=== PATIENT | male | born 1965 | race Caucasian/White ===

== ENCOUNTER 2022-01-11 15:50 | Inpatient (IN) | payer OTHER ==
[~2022-01-11] VITALS: Ht 185.4 cm; Wt 70.8 kg
[2022-01-11 17:22] LABS: BASOPHILS ABSOLUTE AUTO 0.02 K/mm3 (0.00-0.23); BASOPHILS PERCENT AUTO 0 % (0-2); EOSINOPHILS ABSOLUTE AUTO 0.01 K/mm3 (0.00-0.68); EOSINOPHILS PERCENT AUTO 0 % (0-6); Hematocrit 31.6 % (37.0-53.0); Hemoglobin 11.1 g/dL (13.5-17.5); IMMATURE GRAN ABSOLUTE AUTO 0.08 K/mm3 (0.00-0.10); IMMATURE GRAN PERCENT AUTO 1 % (0-1); LYMPHOCYTES ABSOLUTE AUTO 0.81 K/mm3 (0.84-5.20); LYMPHOCYTES PERCENT AUTO 7 % (21-46); MONOCYTES ABSOLUTE AUTO 0.31 K/mm3 (0.16-1.47); MONOCYTES PERCENT AUTO 3 % (4-13); Mean Corpuscular HGB 35.6 pg (26.0-34.0); Mean Corpuscular HGB Conc 35.1 g/dL (31.5-36.5); Mean Corpuscular Volume 101 fL (80-100); Mean Platelet Volume 13.2 fL (9.1-12.4); NEUTROPHILS ABSOLUTE AUTO 11.01 K/mm3 (1.96-9.15); NEUTROPHILS PERCENT AUTO 90 % (41-73); NRBC ABSOLUTE 0.03 K/mm3 (0.00-0.02); NRBC Auto 0.2 /100 WBC (0.0-0.2); Platelet Count 101 K/mm3 (150-400); RDW Standard Deviation 43.3 fL (35.1-46.3); Red Blood Cell Count 3.12 M/mm3 (4.30-5.90); White Blood Cell Count 12.24 K/mm3 (4.00-11.30)
[2022-01-11 17:23] LABS: Alanine Aminotransfer (ALT/SGP 39 U/L (12-78); Albumin, Blood 2.2 g/dL (3.4-5.0); Albumin/Globulin Ratio 0.5 (0.8-1.8); Alk Phos 76 U/L (50-136); Anion Gap 7 mmol/L (6-16); Aspartate Aminotrans (AST/SGOT 61 U/L (12-37); Bilirubin, Total 0.7 mg/dL (0.1-1.0); Blood Urea Nitrogen 14 mg/dL (8-24); Bun/Creatinine Ratio 26.2 (12.0-20.0); CO2, Blood 28 mmol/L (21-32); Calcium, Blood 8.9 mg/dL (8.5-10.1); Chloride, Blood 96 mmol/L (98-108); Creatinine, Blood 0.53 mg/dL (0.60-1.20); Globulin, Blood 4.1 g/dL (2.2-4.0); Glomerular Filtration Rate >60 (60-); Glucose, Blood 108 mg/dL (70-99); Potassium, Blood 3.6 mmol/L (3.5-5.5); Sodium, Blood 131 mmol/L (136-145); Total Protein, Blood 6.3 g/dL (6.4-8.2)
[2022-01-11 18:22] LABS: Ethanol (Alcohol), Blood, Med <3 mg/dL; Magnesium, Blood 1.9 mg/dL (1.6-2.4)
--- NOTE | 2022-01-11 23:39 | NUR ---
PATIENT IS A NEW ADMIT FROM THE ED. THREE PERSON TRANSFER FROM [facility] TO BED. ALERT TO SELF AND KNOWS HE IS IN A MEDICAL FACILITY BUT NOT THE NAME. NO MONTH, DATE, OR YEAR. HALLUCINATING REPORTS SEEING CABLE GOING ACROSS BED. BEDREST, REPORTS TOO WEAK TO STAND SAFELY. ON ROOM AIR. DENIES CHEST PAIN, SOB, AND N/V. REPORTS LOST 80-90 LBS LAST TWO YEARS NOT EATING MUCH. BRUISING TO LEFT HIP AND TOES. TELEMETRY PLACE AND TECH REPORTS NSR 60. BANANA BAG INFUSING AT 200 mL/HR X ONE ROM THE ED. CIWA SCORE:9. ORIENTED TO ROOM AND CALL LIGHT SYSTEM. WCTM.
--- NOTE | 2022-01-12 04:25 | NUR ---
SHIFT SUMMARY PATIENT ALERT TO SELF AND BEDREST. CIWA SCORE 9. VISUAL HALLUCINATIONS SEEING CABLE GOING ACROSS BED AND ASKED IF WE CAN SEE IT. IV ATIVAN 2 MG GIVEN PER EMAR. ABLE TO SLEEP MOST OF THE SHIFT. DENIES CHEST PAIN, SOB, AND N/V. ON ROOM AIR. PIV REMAINS INTACT. DIRECTOR QUALITY ASSURANCE REPORTS NSR @ 60. VSS/AFEBRILE. LIVES IN TRAILER BY HIMSELF. CALL LIGHT IN REACH. BED IN LOWEST POSITION. WILL CONTINUE TO MONITOR UNTIL DAY SHIFT NURSE ASSUMES CARE.
[2022-01-12 04:52] LABS: Hematocrit 31.9 % (37.0-53.0); Hemoglobin 10.9 g/dL (13.5-17.5); Mean Corpuscular HGB 35.2 pg (26.0-34.0); Mean Corpuscular HGB Conc 34.2 g/dL (31.5-36.5); Mean Corpuscular Volume 103 fL (80-100); Platelet Count 96 K/mm3 (150-400); RDW Standard Deviation 44.8 fL (35.1-46.3); White Blood Cell Count 9.23 K/mm3 (4.00-11.30)
[2022-01-12 05:51] LABS: Mean Platelet Volume 13.5 fL (9.1-12.4)
[2022-01-12 06:39] LABS: BAND PERCENT MAN 8 % (0-8); BASOPHILS PERCENT MAN 0 % (0-2); EOSINOPHILS PERCENT MAN 0 % (0-6); LYMPHOCYTES ABSOLUTE MAN 1.47 K/mm3 (0.84-5.20); LYMPHOCYTES PERCENT MAN 16 % (21-46); MONOCYTES ABSOLUTE MAN 0.09 K/mm3 (0.16-1.47); MONOCYTES PERCENT MAN 1 % (4-13); NEUTROPHILS ABSOLUTE MAN 7.66 K/mm3 (1.96-9.15); SEG NEUTROPHILS PERCENT MAN 75 % (41-73); TOTAL CELLS COUNTED 100
[2022-01-12 07:23] LABS: Alanine Aminotransfer (ALT/SGP 36 U/L (12-78); Albumin, Blood 2.1 g/dL (3.4-5.0); Albumin/Globulin Ratio 0.5 (0.8-1.8); Alk Phos 75 U/L (50-136); Anion Gap 4 mmol/L (6-16); Aspartate Aminotrans (AST/SGOT 62 U/L (12-37); Bilirubin, Total 0.6 mg/dL (0.1-1.0); Blood Urea Nitrogen 11 mg/dL (8-24); CO2, Blood 32 mmol/L (21-32); Calcium, Blood 8.8 mg/dL (8.5-10.1); Chloride, Blood 96 mmol/L (98-108); Creatinine, Blood 0.55 mg/dL (0.60-1.20); Glomerular Filtration Rate >60 (60-); Glucose, Blood 111 mg/dL (70-99); Potassium, Blood 3.3 mmol/L (3.5-5.5); Sodium, Blood 132 mmol/L (136-145); Total Protein, Blood 6.1 g/dL (6.4-8.2)
[2022-01-12 11:55] LABS: Percent Saturation 35.7 % (20.0-50.0)
--- NOTE | 2022-01-12 16:30 | NUR ---
SHIFT SUMMARY PATIENT IS ALERT AND ORIENTED TO SELF AND PLACE ONLY. PATIENT IS HAVING Q2 CIWAS AND LATEST CIWA IS 8. LIBRIUM MEDICATED PER EMAR FOR CIWAS TWICE THIS SHIFT. PATIENT HAD A XRAY DONE ON FOOT DUE TO PAIN ON LEFT LEG, SHOWING FRACTURE OF LEFT FOOT/TOES. PATIENT HAS HAD NO ACUTE EVENTS THIS SHIFT. WITHDRAWAL SYMPTOMS HAVE BEEN UNDER 10 ALL SHIFT. VITAL SIGNS REVIEWED. PATIENT RECEIVED A BED BATH THIS SHIFT. BED IN LOCKED AND LOWEST POSITION. CALL LIGHT IN PLACE. WILL MONITOR UNTIL SHIFT CHANGE.
--- NOTE | 2022-01-13 04:56 | NUR ---
SUMMARY PT CIWAS TX PER EMAR. PT HAS BEEN RESTING WELL T/OUT SHIFT. PT HAS NOT BEEN DRINKING PO FLUIDS WELL AND SBP IN 90'S. DR CHAU CALLED AND NS FLUID WAS ORDERED. PT SISTER MAGNUS WOULD LIKE UPDATES WHEN AVAILABLE. PT CURRENTLY SLEEPING IN NO DISTRESS. CALL LIGHT IN REACH AND BED ALARM ON.
[2022-01-13 04:57] LABS: Anion Gap 8 mmol/L (6-16); Blood Urea Nitrogen 11 mg/dL (8-24); Bun/Creatinine Ratio 18.7 (12.0-20.0); CO2, Blood 28 mmol/L (21-32); Calcium, Blood 8.5 mg/dL (8.5-10.1); Chloride, Blood 99 mmol/L (98-108); Creatinine, Blood 0.59 mg/dL (0.60-1.20); Glomerular Filtration Rate >60 (60-); Glucose, Blood 96 mg/dL (70-99); Magnesium, Blood 2.4 mg/dL (1.6-2.4); Sodium, Blood 135 mmol/L (136-145)
--- NOTE | 2022-01-13 18:19 | NUR ---
SHIFT SUMMARY PT GROGGY AND DIFFICULT TO UNDERSTAND THROUGH THE DAY. DID START TO CLEAR UP LATE THIS AFTERNOON AND STARTED PULLING ON TELE LEADS AND CONDOM CATH. SPEECH WAS MORE CLEAR AND VOICE STRONGER SO EASIER TO UNDERSTAND HIM. REPORTED HEADACHE AND SEEING SPOTS WELL HEARING A DOG BARKING. LIBRIUM 50MG GIVEN. REPORTS HE GENERALLY STAYS UP LATER IN DAY AND INTO THE NIGHT.
--- NOTE | 2022-01-14 04:34 | NUR ---
PT IS A/OX2, SELF AND LOCATION. THE PT APPEARS TO BE BREATHING EASILY ON RA. THE PT SCORED CWAW 9 PER THIS RN. PT BECAME RESTLESS X2 DURING THE NIGHT LIBRIUM GIVEN X1, THE PT OTHERWISE SLEPT FOR MOST OF THE NIGHT , CALL LIGHT IN REACH. BED ALARM ON, WILL CONTINUE TO MONITOR AND ASSESS FOR CHANGES
--- NOTE | 2022-01-14 04:34 | NUR ---
SHIFT SUMMARY PT ANXIOUS AND PULLING OFF TELE AT START OF SHIFT. PROVIDER CALLED BY PRIMARY RN NISHA AND ORDER RECEIVED TO D/C TELE. PT DROWSY AND SLEEPING MOST OF THE NIGHT. ATTEMTED TO GET OUT OF BED X2 AND PULLED OFF CONDOM CATH ONCE. CIWA SCORE OF 9. MEDICATED WITH 50MG OF LIBRIUM. A/O X 2. RESTING COMFORTABLY AT THIS TIME.
[2022-01-14 05:40] LABS: Anion Gap 5 mmol/L (6-16); Blood Urea Nitrogen 8 mg/dL (8-24); Bun/Creatinine Ratio 16.9 (12.0-20.0); CO2, Blood 26 mmol/L (21-32); Calcium, Blood 8.2 mg/dL (8.5-10.1); Chloride, Blood 104 mmol/L (98-108); Creatinine, Blood 0.47 mg/dL (0.60-1.20); Glomerular Filtration Rate >60 (60-); Glucose, Blood 98 mg/dL (70-99); Magnesium, Blood 2.3 mg/dL (1.6-2.4); Potassium, Blood 3.5 mmol/L (3.5-5.5); Sodium, Blood 135 mmol/L (136-145)
--- NOTE | 2022-01-14 17:00 | NUR ---
SHIFT SUMMARY PT SLEEPING ON AND OFF TODAY. CAN BE RESTLESS AND THEN FALL ASLEEP EASILY WELL. EATING ONLY A FEW BITES OF MEALS. DOZING THROUGH LUNCH. STILL WHISPERS WITH COMMUNICATION AT TIMES BUT AT OTHER TIMES CAN BE UNDERSTOOD. DRESSING TO L HIP CHANGED WITH SCANT AMOUNT OF DISCHARGE ON OLD DRESSING, SLOUGH IN WOUND BASE. RED COCCYX WITH PREVENTATIVE DRESSING APPLIED. REDNESS AROUND RECTUM WITH ZINC CREAM APPLIED.
--- NOTE | 2022-01-15 07:47 | NUR ---
PM SHIFT SUMMARY PATIENT WAS VERY LETHARGIC ALL SHIFT. I SPOKE WITH BOTH ONCALL DOCS (DR. YODER AND DR. CHAU) WHO PLACED ORDERS FOR 500ML NS BOLUS' FOR PATIENT DURING THE COURSE OF THE SHIFT. PATIENT'S BLOOD PRESSURE 66/57 TO 84/61 OVER THE COURSE OF THE SHIFT. I SPOKE WITH DR. CHAU ONCE MORE AROUND 0600 ABOUT PATIENT'S CONDITION AND SHE PLACED ORDER FOR CONTINUOUS NS @ 100ML/HR UNTIL HE BEGINS TO RUN HIS BANANA BAG. HE SEEMED A BIT MORE AWAKE THIS MORNING, BUT IS STILL NOT SPEAKING OR ABLE TO MOVE MUCH OF HIS BODY.
[2022-01-15 09:45] LABS: PCO2 Arterial 37.2 mmHg (35-45); pH Blood Arterial 7.42 (7.35-7.45)
[2022-01-15 10:10] LABS: Hematocrit 28.8 % (37.0-53.0); Mean Corpuscular HGB 35.6 pg (26.0-34.0); Mean Corpuscular HGB Conc 34.7 g/dL (31.5-36.5); Mean Corpuscular Volume 103 fL (80-100); NRBC ABSOLUTE 0.02 K/mm3 (0.00-0.02); NRBC Auto 0.2 /100 WBC (0.0-0.2); Platelet Count 63 K/mm3 (150-400); RDW Coefficient Variation 12.1 % (11.7-14.2); RDW Standard Deviation 45.3 fL (35.1-46.3); Red Blood Cell Count 2.81 M/mm3 (4.30-5.90)
[2022-01-15 10:12] LABS: Mean Platelet Volume 13.6 fL (9.1-12.4)
[2022-01-15 11:00] LABS: Magnesium, Blood 2.4 mg/dL (1.6-2.4)
[2022-01-15 11:01] LABS: Albumin, Blood 1.5 g/dL (3.4-5.0); Anion Gap 6 mmol/L (6-16); Blood Urea Nitrogen 6 mg/dL (8-24); Bun/Creatinine Ratio 15.4 (12.0-20.0); CO2, Blood 23 mmol/L (21-32); Calcium, Blood 7.9 mg/dL (8.5-10.1); Chloride, Blood 110 mmol/L (98-108); Creatinine, Blood 0.39 mg/dL (0.60-1.20); Glomerular Filtration Rate >60 (60-); Glucose, Blood 111 mg/dL (70-99); Phosphorus, Blood 2.4 mg/dL (2.5-4.9); Potassium, Blood 3.2 mmol/L (3.5-5.5); Sodium, Blood 139 mmol/L (136-145)
--- NOTE | 2022-01-15 19:36 | NUR ---
SUMMARY- THIS AM PT VERY LETHARGIC, BECAME MORE AWAKE AND ALERT THE SHIFT WENT ON. ABLE TO FOLLOW COMMANDS, CARE MANAGEMENT SPECIALIST WEAK BILAT, ANSWERS WITH A NOT OCC YES AND NO. DEPENDANT IN CARE, INCONT BLADDER, UNDERWRITING MANAGER REPORTED CONCENTRATED. LOW BP'S THIS SHIFT, IMPORVED SOME AND BACK DOWN. CALLED JESSICA AT 1830 TO NOTIFY OF LOW BP, ORDER FOR ADDITIONAL 500NS BOLUS. MADE NPO RELATED TO LONG DELAY IN SWALLOW AND ALSO UPPER RESP COARSE. CXR TODAY APPEARS NORMAL. PT ENC TO COUGH BUT CANT CLEAR SECERTIONS. COUGH STIMULATED WHEN TURNED AND ASSIST WITH DEEP YANKAUR SUCTION.
--- NOTE | 2022-01-15 19:41 | NUR ---
0910 CALLED [facility] TO NOTIFY OF LOW BP AND COARSE LUNG SOUNDS, ACUTE NEED TO INCEASE OXGEN FROM 2L TO 5L THAN TO 7L. CHECKING BP AND PULSE FREQ WITH INCREASED VIEWS. WILL CONT TO CHEPE. OBTAINING ABG PER RT.
--- NOTE | 2022-01-16 04:25 | NUR ---
I CONTACTED THE HOSPITALIST REGARDING PATIENT'S DECLINE IN MENTATION AND HIS BP TRENDING DOWN. PT BP WAS 96/65 AT THE START OF THE SHIFT AND HAS DECREASED TO 88/61. PT WAS ORIGINALLY ALERT AND RESPONDED TO VOICE AND OPENED EYES SPONTANEOUSLY. HE WAS NODDING AND SHAKING HIS HEAD IN RESPONSE TO QUESTIONS AND FOLLOWED DIRECTIONS. WHEN PT WAS AWOKEN FOR MORNING VITALS, HE WAS UNABLE TO STAY AWAKE AND REQUIRED SHAKING AND STERNAL RUBS TO OPEN HIS EYES. PT SEEMED UNABLE TO FOCUS HIS EYES ON ME OR THE HOSPITALIST AND HAD MINIMAL RESPONSE TO QUESTIONING. PT WAS WRAPPED IN BLANKETS AND THE HEAT INCREASED IN THE ROOM TO ASSIST WITH HIS HYPOTHERMIA, WITH SLIGHT IMPROVEMENT. MENTATION DID NOT IMPROVE. HOSPITALIST TO PT BEDSIDE. MANUAL BP OF 80/58 WITH WEAK PULSE. HOSPITALIST TOLD ME TO HAVE THE PT TRANSFERRED TO ICU.
[2022-01-16 04:30] LABS: Base Excess Venous -1.9 mmol/L; Bicarbonate Venous 23.1 mmol/L (24.0-30.0); PCO2 Venous 35.6 mmHg (38-42); PO2 Venous 84.5 mmHg (38-42); pH Blood Venous 7.41 (7.34-7.37)
[2022-01-16 04:33] LABS: Hematocrit 29.4 % (37.0-53.0); Hemoglobin 10.4 g/dL (13.5-17.5); Mean Corpuscular HGB 36.5 pg (26.0-34.0); Mean Corpuscular HGB Conc 35.4 g/dL (31.5-36.5); Mean Corpuscular Volume 103 fL (80-100); Platelet Count 54 K/mm3 (150-400); RDW Coefficient Variation 12.5 % (11.7-14.2); RDW Standard Deviation 47.1 fL (35.1-46.3); Red Blood Cell Count 2.85 M/mm3 (4.30-5.90)
--- NOTE | 2022-01-16 04:34 | NUR ---
REPORT GIVEN TO CHAR ZIEGLER, FILTER TANK TENDER HELPER. PT TAKEN TO ICU-10 BY HOSPITAL BED AND TRANSFERRED TO ICU BED. CARE TRANSFERRED TO ICU RNS
[2022-01-16 04:46] LABS: Mean Platelet Volume 13.7 fL (9.1-12.4)
[2022-01-16 04:53] LABS: Albumin, Blood 1.4 g/dL (3.4-5.0); Anion Gap 6 mmol/L (6-16); Blood Urea Nitrogen 5 mg/dL (8-24); CO2, Blood 22 mmol/L (21-32); Calcium, Blood 7.7 mg/dL (8.5-10.1); Chloride, Blood 111 mmol/L (98-108); Creatinine, Blood 0.42 mg/dL (0.60-1.20); Glomerular Filtration Rate >60 (60-); Glucose, Blood 94 mg/dL (70-99); Phosphorus, Blood 4.7 mg/dL (2.5-4.9); Potassium, Blood 3.2 mmol/L (3.5-5.5); Sodium, Blood 139 mmol/L (136-145)
[2022-01-16 05:07] LABS: BAND PERCENT MAN 5 % (0-8); BASOPHILS ABSOLUTE MAN 0.07 K/mm3 (0.00-0.23); BASOPHILS PERCENT MAN 1 % (0-2); EOSINOPHILS PERCENT MAN 0 % (0-6); LYMPHOCYTES ABSOLUTE MAN 0.56 K/mm3 (0.84-5.20); LYMPHOCYTES PERCENT MAN 8 % (21-46); MONOCYTES ABSOLUTE MAN 0.21 K/mm3 (0.16-1.47); MONOCYTES PERCENT MAN 3 % (4-13); NEUTROPHILS ABSOLUTE MAN 6.16 K/mm3 (1.96-9.15); SEG NEUTROPHILS PERCENT MAN 83 % (41-73); TOTAL CELLS COUNTED 100
[2022-01-16 05:26] LABS: Source, Urine Foley catheter
[2022-01-16 05:30] LABS: Bilirubin, Urine Neg (Neg); Blood, Urine Neg (Neg); Glucose Qualitative, Urine Neg (Neg); Ketones, Urine Neg (Neg); Leukocyte Esterase, Urine Neg (Neg); Nitrite, Urine Neg (Neg); Protein, Urine Neg (Neg); Urobilinogen, Urine NORM (Normal)
[2022-01-16 05:42] LABS: Appearance, Urine Clear (Clear); Color, Urine Yellow (P-Yellow)
--- NOTE | 2022-01-16 06:53 | NUR ---
PATIENT WAS ADMITTED TO ICU 0440 - ASSUMED CARE. SHIFT SUMMARY: NEURO - PATIENT UNABLE TO MOVE LOWER EXT TO PAIN, CAN MOVE UPPER EXTREMITIES TO PAINFUL STIMULI. VERY WITHRAWN WITH FLAT AFFECT, CAN NOD YES AND NO WHEN BEING ASKED A QUESTION. WHEN PATIENT IS ASLEEP DIFFICULT TO AROUSE, STERNAL RUB USED TO GET PATIENT TO WAKE UP. RESP - TOLERATING ROOM AIR, O2 SATURATION HIGH 90's. DIMINISHED LUNG SOUNDS. NO COUGH. CARDIAC - HYPOTENSIVE, MD NOTIFIED AND ORDERED LEVOPHED TO KEEP MAP GREATER THAN 65. PATIENT WAS VERY COLD, TEMP HOLT CATHETER INSERTED FOR ACCURATE TEMPERATURES AND I/Os. TEMP WAS 91.0 AFTER HOLT PLACEMENT. GI/ - NPO. NO BM. TEMP SENSING HOLT IN PLACE. INTEG - UNABLE TO OBTAIN WOUND PHOTOS, MISSING CAMERA IN ICU. SKIN IS FRAGILE AND DRY. PRESSURE WOUND ON LEFT HIP MEPILEX ON. COCCYX INTACT WITH REDNESS. BOTH FEET HAVE SCATTERED WOUNDS, SLIGHTLY MOTTLED.
--- NOTE | 2022-01-16 13:15 | NUR ---
REASSESSMENT PT HAS BEEN RESTING IN THE BED ALL MORNING. HE OPENS HIS EYES NOW TO TOUCH AND NOT JUST PAINFUL STIMULI, BUT HE STILL WON'T ANSWER QUESTIONS OR FOLLOW COMMANDS. HE DOES TURN HIS HEAD TOWARD WHOEVER IS TALKING. GAG PRESENT. LUNGS ARE CLEAR, RA. SR, STILL HYPOTENSIVE. LEVOPHED TITRATED DOWN TO 1 MCG/MIN. ATTEMPTED TO TURN IT ALL THE WAY OFF THIS MORNING, BUT MAP FELL BELOW 65MMHG AND SBP DROPPED TO THE 70S. BOWEL TONES ACTIVE, HOLT DRAINING CL YELLOW URINE. WOUNDS UNCHANGED, PICTURES TAKEN THIS MORNING, SEE CHART. TOOK PT FOR CT AND PT TOLERATED WELL. PT'S SISTER JUSTIN CALLED. SHE STATES THE SO LISTED PT'S EMERGENCY CONTACT EARLIER THIS YEAR. JUSTIN SAYS PT HAS FAMILY, BUT THEY'VE ALL AGREED TO USE HER THE SPOKESPERSON WITH THE HOSPITAL. CARE MANAGEMENT INFORMED OF THIS AND WORK ON VERIFYING JUSTIN.
--- NOTE | 2022-01-16 17:23 | NUR ---
SHIFT SUMMARY PT CONTINUED TO BE NONVERBAL THROUGHOUT THE SHIFT. HE WAKES UP EASIER THAN THIS MORNING, BUT STILL DOESN'T ANSWER QUESTIONS OR FOLLOW COMMANDS. HIS LUNGS ARE CLEAR AND HE'S ON RA WITH SPO2 94%. SR, LEVOPHED WAS TITRATED OFF THIS AFTERNOON, MAP CURRENTLY 72. HOLT WITH CL YELLOW OUTPUT, BOWEL TONES ACTIVE. CONTINUING TO MONITOR.
[2022-01-17 03:17] LABS: BASOPHILS ABSOLUTE AUTO 0.02 K/mm3 (0.00-0.23); BASOPHILS PERCENT AUTO 0 % (0-2); EOSINOPHILS ABSOLUTE AUTO 0.02 K/mm3 (0.00-0.68); EOSINOPHILS PERCENT AUTO 0 % (0-6); Hematocrit 27.3 % (37.0-53.0); Hemoglobin 9.4 g/dL (13.5-17.5); IMMATURE GRAN ABSOLUTE AUTO 0.07 K/mm3 (0.00-0.10); IMMATURE GRAN PERCENT AUTO 1 % (0-1); LYMPHOCYTES ABSOLUTE AUTO 1.34 K/mm3 (0.84-5.20); LYMPHOCYTES PERCENT AUTO 25 % (21-46); MONOCYTES ABSOLUTE AUTO 0.32 K/mm3 (0.16-1.47); MONOCYTES PERCENT AUTO 6 % (4-13); Mean Corpuscular HGB 35.7 pg (26.0-34.0); Mean Corpuscular HGB Conc 34.4 g/dL (31.5-36.5); Mean Corpuscular Volume 104 fL (80-100); NEUTROPHILS ABSOLUTE AUTO 3.53 K/mm3 (1.96-9.15); NEUTROPHILS PERCENT AUTO 67 % (41-73); NRBC ABSOLUTE 0.03 K/mm3 (0.00-0.02); NRBC Auto 0.6 /100 WBC (0.0-0.2); Platelet Count 60 K/mm3 (150-400); RDW Standard Deviation 48.9 fL (35.1-46.3); Red Blood Cell Count 2.63 M/mm3 (4.30-5.90)
[2022-01-17 03:31] LABS: Mean Platelet Volume 13.7 fL (9.1-12.4)
[2022-01-17 03:32] LABS: Alanine Aminotransfer (ALT/SGP 40 U/L (12-78); Albumin, Blood 1.7 g/dL (3.4-5.0); Albumin/Globulin Ratio 0.5 (0.8-1.8); Alk Phos 100 U/L (50-136); Anion Gap 7 mmol/L (6-16); Aspartate Aminotrans (AST/SGOT 62 U/L (12-37); Bilirubin, Total 0.3 mg/dL (0.1-1.0); Blood Urea Nitrogen 4 mg/dL (8-24); Bun/Creatinine Ratio 7.6 (12.0-20.0); CO2, Blood 23 mmol/L (21-32); Calcium, Blood 7.5 mg/dL (8.5-10.1); Chloride, Blood 113 mmol/L (98-108); Creatinine, Blood 0.53 mg/dL (0.60-1.20); Globulin, Blood 3.4 g/dL (2.2-4.0); Glomerular Filtration Rate >60 (60-); Glucose, Blood 75 mg/dL (70-99); Potassium, Blood 2.8 mmol/L (3.5-5.5); Sodium, Blood 143 mmol/L (136-145); Total Protein, Blood 5.1 g/dL (6.4-8.2)
--- NOTE | 2022-01-17 06:17 | NUR ---
SHIFT SUMMARY: NO MAJOR/SIGNIFICANT CHANGES OVERNIGHT. PATIENT RESPONDS TO VERBAL STIMULI, ABLE TO MOVE UPPER EXTREMITIES TO COMMAND BUT LOWER EXT ONLY FLICKER TO PAINFUL STIMULI. STILL UNABLE TO SPEAK, ONLY MOANS TO PAIN DURING REPOSITIONING. LEVOPHED REMAINED OFF THROUGHOUT THE NIGHT, BP STABLE. ON ROOM AIR WITH SATURATIONS IN THE HIGH 90's. OCCASIONAL NONPRODUCTIVE COUGH. NORMAL SINUS RHYTHM 80 - 90's. TEMPERATURE WAS NORMAL OVERNIGHT WITH THE WARMING BLANKET ON MOST OF THE NIGHT. REMAINS NPO, 1X BM OVERNIGHT. HOLT PATENT AND DRAINING TO GRAVITY. BED ALARM UNABLE TO WORK DUE TO PATIENT'S LOW WEIGHT. INFUSIONS: NORMAL SALINE.
--- NOTE | 2022-01-17 07:47 | NUR ---
PT AWAKE IN ROOM, NON-VERBAL, MOANS ONLY. ABLE TO FOLLOW SIMPLE COMMANDS. APPEARS TO NOD HEAD APPROPRIATELY TO QUESTIONS. NODDED NO TO PAIN, NODDED YES TO DOES HE KNOW HIS NAME, UNABLE TO STATE NAME. PT WITH VERY WEAK ED TRANSPORTER. PT WITH POOR COUGH AND GAG. COUGH WET AND PT UNABLE TO CLEAR SECRETIONS. PT UNABLE TO SWALLOW SAFELY MAY REQUIRE SUPPLEMENTAL NUTRITION. BP STABLE. TEMP STABLE AT 96.8, WARM BALNKETS ON PT.
--- NOTE | 2022-01-17 11:28 | NUR ---
Spoke with pt's sister Juana regarding pt's current condition and wishes. Juana states the pt would not want any heroic measures, and tearfully explained she believes he has given up for quite some time. She is next of kin, and elects to change code status to DNR. She would like to give him "a little more time" before discussing comfort care; as he is only 56 years old. Palliative care will continue discussions with Jauna and update her. Will f/u with Dr. Dotson.
[2022-01-17 12:36] LABS: Percent Saturation 29.9 % (20.0-50.0)
--- NOTE | 2022-01-17 12:49 | NUR ---
DR LOPEZ IN AT 1000, FULL UPDATE GIVEN. PERIPHERAL IV NUTRITION TO BE ORDERED. PT MOANS WITH TURNS. PT NOW DNR STATUS PER PT'S SISTER. PT NOW MED FLOOR STATUS PER DR LOPEZ, NO OTHER CHANGES
--- NOTE | 2022-01-17 18:42 | NUR ---
PT HAD NO CHANGES T/O SHIFT UNTIL JUST PRIOR TO TRANSFER. ALTHOUGH PT WAS MEDICAL STATUS W/O TELE, PT WAS LEFT ON MONITOR PRIOR TO TRANSFER. JUST PRIOR TO TRANSFER SATS DROPPED TO MID 80'S. PT AWAKENED TO VOICE BUT VERY WET WEAK COUGH. PT UNABLE TO CLEAR SECRETIONS. PT DEEP SUCTIONED; COPIOUS AMTS OF SPUTUM SUCTIONED. SATS THEN RETURNED TO LOW TO MID 90'S. RT NOTIFIED. OCULARIST NOTIFIED. NT SUCTION AND CONTINOUS SATS MONITOR ORDERED. PT THEN TRANSFERED UP TO ROOM 329. MEDICAL FLOOR RN GIVEN FULL REPORT WITH UPDATE. TPN STARTED PER MD ORDERS.
--- NOTE | 2022-01-17 20:14 | NUR ---
SHIFT SUMMARY MR ROSS WAS TRANSFERED FROM ICU TO MEDICAL FLOOR AT 1815HRS. LARGE SOFT BM AFTER MOVING HIM TO MED BED. PT TURNED AND CLEANED - PT MOANING IN RESPONSE TO STIMULI, NOT SPEAKING AT ALL. PUT ON CONTINUOUS PULSE OX DUE TO HYPOXIC EPISODE IN ICU JUST PRIOR TO TRANSFER. SATS IN THE 90S ON ROOM AIR HERE. LEFT AC IV FLUSHED AND PREIPHERAL PARENTAL NUTRITION STARTED AT 95CC/HR. BED LOW, BED ALARM ON, CALL LIGHT IN REACH.
[2022-01-18 05:00] LABS: Magnesium, Blood 1.9 mg/dL (1.6-2.4); Phosphorus, Blood 3.4 mg/dL (2.5-4.9); Potassium, Blood 3.1 mmol/L (3.5-5.5); Triglycerides 129 mg/dL (30-160)
--- NOTE | 2022-01-18 05:23 | NUR ---
SHIFT SUMMARY 56 Y MALE ADMITTED FOR ETOH W/DRAWL. PT WAS TRANSFERRED BACK TO MEDICAL FLOOR JUST PRIOR TO [facility] SH[facility]. PT ALERT & NONVERBAL THIS SHIFT. PT WAS ABLE DID RESPOND TO VERBAL CUES AND RESPONDED WITH MOANS WHEN REPOSTITIONED IN BED. PT HAS SKIN PROTECTORS/MEPIPLEX IN PLACE OVER ACRUM AND BILAT HIPS. PT APPEARED TO REST COMFORTABLE WITH NO ACUTE CHANGES THIS SHIFT.
--- NOTE | 2022-01-18 17:09 | NUR ---
SHIFT SUMMARY THE PATIENT IS MORE ALERT AND ABLE TO SAY A FEW WORDS THIS AFTERNOON. THE PATIENT ASKED FOR WATER. THIS NURSE ASKED THEM THEIR DATE OF BUT THEY COULD NOT ANSWER. THIS NURSE REMINDED THE PATIENT THAT THEY WOULD HAVE TO PASS A SPEECH EVALUATION FIRST. THE PATIENT WAS SWALLOWING AND CLEARING THEIR THROAT THIS AFTERNOON. THE PATIENT HAS BEEN GETTING ORAL CARE AND MOISTURIZER THIS SHIFT. THEY CURRENTLY HAVE PPN INFUSING AT 95MLS/HR. THE PATIENT WENT FOR AN MRI TODAY. HOLT PATENT AND DRAINING TO GRAVITY. VSS. BED ALARM ON. BED IN LOWEST POSITION. CALL LIGHT WITHIN REACH.
[2022-01-19 05:43] LABS: Hematocrit 32.4 % (37.0-53.0); Hemoglobin 11.2 g/dL (13.5-17.5); Mean Corpuscular HGB 35.7 pg (26.0-34.0); Mean Corpuscular HGB Conc 34.6 g/dL (31.5-36.5); Mean Corpuscular Volume 103 fL (80-100); Mean Platelet Volume 12.6 fL (9.1-12.4); NRBC ABSOLUTE 0.03 K/mm3 (0.00-0.02); NRBC Auto 0.5 /100 WBC (0.0-0.2); Platelet Count 53 K/mm3 (150-400); RDW Coefficient Variation 12.7 % (11.7-14.2); RDW Standard Deviation 48.2 fL (35.1-46.3); Red Blood Cell Count 3.14 M/mm3 (4.30-5.90); White Blood Cell Count 6.14 K/mm3 (4.00-11.30)
--- NOTE | 2022-01-19 06:32 | NUR ---
SHIFT SUMMARY PT IS A 56 Y/O MALE, ADMITTED FOR ETOH WITHDRAWAL. HE IS A&O X SELF, LETHARGIC, DOESN'T SPEAK BUT OCCASIONALLY SHAKES HIS HEAD TO ANSWER QUESTIONS WHILE AWAKE. CURRENTLY NPO. RECEIVING PPN @ 95 ML/HR. VITAL SIGNS STABLE. NO S/S OF ACUTE PAIN OR DISTRESS. NO OTHER ACUTE CHANGES IN PT CONDITION NOTED DURING THE NIGHT. WILL CONTINUE TO MONITOR AND TREAT PER EMAR UNTIL HAND OFF TO DAY SHIFT RN.
[2022-01-19 06:58] LABS: Albumin, Blood 1.6 g/dL (3.4-5.0); Anion Gap 5 mmol/L (6-16); Blood Urea Nitrogen 8 mg/dL (8-24); Bun/Creatinine Ratio 17.3 (12.0-20.0); CO2, Blood 26 mmol/L (21-32); Calcium, Blood 8.4 mg/dL (8.5-10.1); Chloride, Blood 103 mmol/L (98-108); Creatinine, Blood 0.46 mg/dL (0.60-1.20); Glomerular Filtration Rate >60 (60-); Glucose, Blood 112 mg/dL (70-99); Phosphorus, Blood 3.7 mg/dL (2.5-4.9); Potassium, Blood 3.9 mmol/L (3.5-5.5); Sodium, Blood 134 mmol/L (136-145)
--- NOTE | 2022-01-19 18:39 | NUR ---
SHIFT SUMMARY PT IS AOX1. VITAL SIGNS STAYED WNL. HE RESPONDS BY SHAKING HIS HEAD YES OR NO TO QUESIONS. HIS SPEECH IS INCOMPREHENSIBLE. PT VITALS STABLE THROUGHOUT THE SHIFT. O2 AROUND 92 THE ENTIRE SHIFT. PT RECIEVING PPN. PT REPORTED PAIN AND MEDICATED PER EMAR. PT HAS A INDWELLING CATHETER. PT SLEPT MOST OF THE SHIFT. HE DENIED ORAL CARE BUT HE WAS OFFERED EVERY 2 HOURS. RESPOSITIONED EVERY 2 HOURS. HE RECIEVED STEVE CARE. PT IS A DNR. NEW ORDER RECIEVED FOR TORADOL IV AND ATIVAN FOR CONTRACTURE PAIN AND NON-SPECIFIC PAIN. WILL CONTINUE TO MONITOR VITAL SIGNS UNTIL TRANSFERRED TO [facility] SHIFT NURSE.
--- NOTE | 2022-01-20 04:58 | NUR ---
PART TIME FLEXIBLE CLERK SUMMARY PT ON PPN THROUGHOUT THE SHIFT WITH NO COMPLAINTS. HE IS ALERT AND COOPERATIVE. PT SHAKES AND NODS HIS HEAD IN ANSWER TO QUESTIONS. HOLT IN PLACE AND PATENT. PT WITH FLAT AFFECT BUT MAKES EYE CONTACT. HE MUMBLES INCOMPREHENSIBLE SENTENCES. PT RECEIVED ONE DOSE OF IV THIAMINE LAST NIGHT AND CONTINUES TO REST. HE REQUIRES SUCTIONING TO MANAGE SECRETIONS. FREQUENT ORAL CARE PERFORMED FOR DRY MOUTH. PT REMAINS NPO DUE TO ASPIRATION RISK.
[2022-01-20 09:44] LABS: Anion Gap 5 mmol/L (6-16); Blood Urea Nitrogen 12 mg/dL (8-24); Bun/Creatinine Ratio 29.6 (12.0-20.0); CO2, Blood 26 mmol/L (21-32); Calcium, Blood 8.5 mg/dL (8.5-10.1); Chloride, Blood 100 mmol/L (98-108); Creatinine, Blood 0.41 mg/dL (0.60-1.20); Glomerular Filtration Rate >60 (60-); Glucose, Blood 114 mg/dL (70-99); Magnesium, Blood 2.1 mg/dL (1.6-2.4); Potassium, Blood 4.2 mmol/L (3.5-5.5); Sodium, Blood 131 mmol/L (136-145)
--- NOTE | 2022-01-20 18:10 | NUR ---
SHIFT SUMMARY: NO ACUTE EVENTS. RESPONDS TO SPEECH, VOICE IS HOARSE. REMOVED SIGNIFICANT PLAQUE FROM ORAL CAVITY THIS MORNING, HAS SOME SOME SCATTERED LESIONS. EDEMA NOTED IN BLE AND BILATERAL FEET. PPN INFUSING WITHOUT INCIDENT. NEWLY DISCOVERED DTI ON L HEEL; PAINTED WITH SKIN BARRIER, COVERED WITH FOAM HEEL DRESSING AND PRESSURE OFF LOADED WITH PILLOWS. L HIP DECUBITUS WITH SLOUGH; MAY BENEFIT FROM WOUND CONSULT. MEDICATED WITH TORADOL FOR PAIN; MAY BENEFIT FROM ADDITIONAL PAIN INTERVENTIONS. PALLIATIVE CARE IS INVOLVED. SISTER NANCY CALLED, GAVE TELEPHONE UPDATE.
--- NOTE | 2022-01-20 18:35 | NUR ---
Pt has continued to fail swallow evaluations. He is unable to make his needs and wants known on a regular basis due cognitive issues/communication deficit. He remains NPO, and bedside RN Evelina concerned his pain may not be controlled with current medication as he yells out and grimaces with any movement. Spoke to pt's sister Juana who indicates she continues to wonder if pt is ready for comfort care. She understands he is NPO, but also adamant he would never want to be tube fed. She requests an update from Dr. Villatoro tomorrow, and he states he will give her a call. Palliative Care will continue to follow.
--- NOTE | 2022-01-21 06:11 | NUR ---
SHIFT SUMMARY PT SLEPT HARD FOR FIRST HALF OF SHIFT, ONLY OPENING HIS EYES BRIEFLY AND THEN CLOSING THEM AGAIN. WOKE MORE LATER IN THE EVENING, REMAINED MOSTLY NONVERBAL BUT DID ASK FOR A CUP OF COFFEE. ONE LOOSE BOWEL MOVEMENT THIS EVENING. HOLT CATHETER PATENT AND DRAINING. MEPILEX DRESSINGS TO HEEL, HIP AND COCCYX REMAINED C/D/I. EDEMA TO BLE'S. VITAL SIGNS STABLE. PT HAD A MOSTLY UNEVENTFUL NIGHT. WILL CONTINUE TO MONITOR.
[2022-01-21 08:29] LABS: Anion Gap 5 mmol/L (6-16); Blood Urea Nitrogen 14 mg/dL (8-24); Bun/Creatinine Ratio 36.1 (12.0-20.0); CO2, Blood 23 mmol/L (21-32); Calcium, Blood 8.4 mg/dL (8.5-10.1); Chloride, Blood 102 mmol/L (98-108); Creatinine, Blood 0.39 mg/dL (0.60-1.20); Glomerular Filtration Rate >60 (60-); Glucose, Blood 112 mg/dL (70-99); Magnesium, Blood 2.1 mg/dL (1.6-2.4); Phosphorus, Blood 4.5 mg/dL (2.5-4.9); Potassium, Blood 5.1 mmol/L (3.5-5.5); Sodium, Blood 130 mmol/L (136-145)
--- NOTE | 2022-01-21 18:39 | NUR ---
END OF SHIFT SUMMARY: PTS SISTER CALLED TODAY FOR AN UPDATE, REPORTED NO CHANGES IN CONDITION. PT RESTING COMFORTABLY IN BED. SISTER EMOTIONAL UNSURE OF WHAT TO DO GOING FORWARD, SHE STATED THAT SHE FEELS LIKE IF SHE CHANGES PT TO COMFORT MEASURES SHE WOULD BE STARVING PT TO , AND HOW WOULD PT REPORT PAIN IF HE CANNOT SPEAK. PROVIDED EDUCATION ON THE DYING PROCESS, AND STATED THAT NURSES ARE TRAINED TO OBSERVED FOR VERBAL & NONVERBAL BODY LANGUAGE TO ASSESS A PATIENTS NEED FOR PRN COMFORT MEDS. PTS SISTER WOULD APPRECIATE SPEAKING TO MD & PALLILATIVE CARE ON COMFORT MEASURES. PT SLEPT ALL DAY, TURNED Q2H. SPB 87 THIS AFTERNOON, MD ORDERED IV BOLUS 100/ML. CHANGED PPN BAG/TUBING AT 1700. MEPILEX ON COCCYX/LEFT HEEL CDI.
--- NOTE | 2022-01-22 05:18 | NUR ---
SHIFT SUMMARY PT HAD A MOSTLY UNEVENTFUL NIGHT. REMAINED MOSTLY NONVERBAL. OPENS EYES WHEN SPOKEN TO OR WHILE PROVIDING CARE. MOANS WITH TURNING AND REPOSITIONING. OTHERWISE SLEEPS. LARGE LIQUID BOWEL MOVEMENT THIS EVENING. HOLT CATHETER PATENT AND DRAINING. MEPILEX DRESSINGS REMAIN IN PLACE TO BILATERAL HIPS. COCCYX MEPILEX REPLACED. PPN CONTINUES TO TRANSFUSE. PT CONTINUES WITH HYPOTENSION, ASYMPTOMATIC. OTHERWISE VITAL SIGNS STABLE. WILL CONTINUE TO MONITOR.
[2022-01-22 05:57] LABS: Anion Gap 6 mmol/L (6-16); Blood Urea Nitrogen 11 mg/dL (8-24); Bun/Creatinine Ratio 22.7 (12.0-20.0); CO2, Blood 23 mmol/L (21-32); Calcium, Blood 8.1 mg/dL (8.5-10.1); Chloride, Blood 104 mmol/L (98-108); Creatinine, Blood 0.49 mg/dL (0.60-1.20); Glomerular Filtration Rate >60 (60-); Glucose, Blood 92 mg/dL (70-99); Magnesium, Blood 2.2 mg/dL (1.6-2.4); Phosphorus, Blood 3.9 mg/dL (2.5-4.9); Potassium, Blood 4.1 mmol/L (3.5-5.5); Sodium, Blood 133 mmol/L (136-145)
--- NOTE | 2022-01-22 17:04 | NUR ---
Spoke to pt's sister Juana today. She requested an update on pt's status regarding swallowing. I informed her he failed the speech evaluation today. In regards to comfort care vs continuing treatment, Juana stated, "I want him to be comfortable and I don't want him to suffer, and if that's comfort care, that's what I want". She again reiterated the pt has expressed he wouldn't ever want a feeding tube or mechanical ventilation. He is currently receiving parenteral nutrition, and is unable to make his needs want or known. He is non-verbal at this time, and doesn't appear to show any interest or concern with staff. Offered a Zoom Call to his sister, but she became tearful and declined, stating, "I don't want to see him like this". She also states she knew when she visited him last year, she would not see him alive again, and that he would "Drink himself to , because that's how he wanted to go out". Dr. Villatoro requests pt be seen again by ST to evaluate swallow ability prior to making any decision to change plan of care. Palliative Care will remain available.
--- NOTE | 2022-01-22 17:46 | NUR ---
SHIFT SUMMARY PATIENT DENIES PAIN, NAUSEA, AND SHORTNESS OF BREATH. PATIENT IS BEDBOUND. PATIENT DID NOT VERBALIZE ANY WORDS TODAY. PATIENT ONLY GROANED WHEN REPOSITIONING. PATIENT DOES OPEN EYES TO SOUNDS, BUT DOES NOT FOLLOW DIRECTIONS WELL. SPEECH DID AN EVAL WITH PATIENT TODAY. ATTEMPTED TO PUT FOOD INTO PATIENTS MOUTH, PATIENT DID NOT ATTEMPT TO SWALLOW. THICK SECRETIONS, RECOMMENDED 3X A DAY ORAL SUCTION SWABS TO CLEAN MOUTH. PATIENT IS NPO. PPN RUNNING AT 95MLS/HR. HOLT CATHETER IS PATENT AND DRAINING TO GRAVITY. PALLIATIVE CARE CONSULTED, SEE NOTES. PATIENT IS PLEASANT AND COOPERATIVE WITH CARE.
--- NOTE | 2022-01-23 08:47 | NUR ---
Rn summary: Patient opens eyes to verbal response and touch. Pt is none verbal. Pt breath sounds are course throughout all lobes, more diminished rt base. Pt is on strict I and O. Pt has mepilex to coccyx and bev hips CDI. Pt was repositioned frequently. Medicated x2 for pain, once with toradol and once with fentanyl. He rested much better after the fentanyyl. Pt is receiving PPN. Pt has great urine output via acevedo. Report given to oncoming shift.
--- NOTE | 2022-01-23 12:53 | NUR ---
Pt resting in bed with his eyes closes. Pt appears comfortable with no S/S of distress at this time. Pt left undisturbed at this time. Spoke with Primary RN Hiral and discussed case. Hiral reports Pt's mentation is declining since yesterday. Spoke with ST [facility] and discussed case. Cara reports Pt failed his swallow again today. She reports Pt is likely to continue failing swallow evaluation unless mentation improves. Spoke with Dr Villatoro, discussed case and prognosis. Pt unlikely to improve. Spoke with Pt's sister Kristen and provided update. Kristen reports being in contact with Pt's daughter Howard. Received Elsi's contact imformation. Called and spoke with Pt's daughter Elsi. Provided update and therapeutic listening. Elsi reports working in ICU in [place]. She reports Pt would not want a feeding tube and would want to focus on comfort at this point in his life. Deferred some questions to caremanager to discuss regarding placement. Elsi elects to place Pt on comfort care. Educated on comfort care philosophy with V/U made by Elsi. Elsi reports plan to call Pt's sister Kristen. Abby also reports Pt has another daughter who is estranged and has no way of contacting her. Pt also has a son who is admitted to a hospital in [place] for alcohol withdrawel. Will F/U with care team regarding family wishes. Palliative Care will remain available.
--- NOTE | 2022-01-23 13:32 | NUR ---
Late Entry from previous visit note. Spoke with Dr Villatoro, discussed case and family's wishes. Placed order for comfort care, comfort care order set, and D/C maintenance medications per V/O from Dr Villatoro.
--- NOTE | 2022-01-23 18:04 | NUR ---
COMFORT CARE SUMMARY PATIENT MADE COMFORT CARE AT 1400. PATIENT MEDICATED X1 DUE TO GROANING AND HAVING TO MOVE PATIENT. PATIENT RESTING COMFORTABLY.
--- NOTE | 2022-01-24 05:31 | NUR ---
SHIFT SUMMARY PT SLEPT THROUGH THE NIGHT. OPENED EYES TO VERBAL STIMULI BUT WOULD NOT SPEAK OR NOD HIS HEAD TO ANSWER QUESTIONS. HOLT CATH PATENT AND DRAINING. PT WITH SLIGHT GRIMACE WITH MOVEMENT BUT OTHERWISE SLEEPING WHEN NOT WOKEN BY STAFF. NO FAMILY AT BEDSIDE THIS EVENING. NO ACUTE CHANGES THIS EVENING. WILL CONTINUE TO MONITOR.
--- NOTE | 2022-01-24 12:14 | NUR ---
Comfort Care Visit Pt resting in bed upon arrival. Pt's eyes are open and tracks this RN with his eyes. It appears Pt attempts to respond verbaly but mild moan is noted. Offered therapeutic voice and gentle touch. Pt appears comfortable with no S/S of distress at this time. Palliative Care will remain available.
--- NOTE | 2022-01-25 04:20 | NUR ---
SHIFT SUMMARY: PATIENT IS ON COMFORT CARE, HAS NOT EXHIBITED ANY PAIN, NAUSEA, ANXIETY, OR AGITATION. TURNED, ORAL, AND CATH CARE PROVIDED. PATIENT IS NONVERBAL. WILL OPEN EYES TO SPEECH, BUT UNABLE TO COMMUNICATE. WCTM.
--- NOTE | 2022-01-25 08:00 | NUR ---
pt laying in bed with eyes open, opens more when name is spoke but not responding, no s/s of distress, is currently on comfort care, will reposition q2 hr and prn, and medicate as needed. call light in reach.
[2022-01-25] MEDS ORDERED: MORP20L SL (08:53)
[2022-01-25 10:07] LABS: SARS-Cov-2 (COVID-19) Antigen Negative (NEGATIVE)
--- NOTE | 2022-01-25 12:10 | NUR ---
pt left via gurney with transport to [facility], ivx2 removed intact, moved to [facility] without diff, report was called in yesterday.
== END 2022-01-25 12:27 | disposition hospice, inpatient (51) | DRG 896 ==
LOC: ER 15:50 → MEDS 15:51 → ICUW 01-12 15:53 → MEDS 01-12 15:54 → ICUW 01-16 04:38 → MEDS 01-17 18:13
PROVIDERS: Emergency Medicine; Internal Medicine; ADMIT Family Medicine
DX: F10.231 Alcohol dependence with withdrawal delirium (principal); A41.9 Sepsis, unspecified organism; J96.01 Acute respiratory failure with hypoxia; J18.9 Pneumonia, unspecified organism; G92.9 Unspecified toxic encephalopathy; J69.0 Pneumonitis due to inhalation of food and vomit; R65.21 Severe sepsis with septic shock; S22.32XA Fracture of one rib, left side, initial encounter for closed fracture; E87.1 Hypo-osmolality and hyponatremia; E44.0 Moderate protein-calorie malnutrition; Z51.5 Encounter for palliative care; D72.829 Elevated white blood cell count, unspecified; E88.09 Other disorders of plasma-protein metabolism, not elsewhere classified; D64.9 Anemia, unspecified; I95.9 Hypotension, unspecified; D69.6 Thrombocytopenia, unspecified; E87.6 Hypokalemia; S92.422A Displaced fracture of distal phalanx of left great toe, initial encounter for closed fracture; G31.84 Mild cognitive impairment of uncertain or unknown etiology; R74.01 Elevation of levels of liver transaminase levels; D63.8 Anemia in other chronic diseases classified elsewhere; E83.39 Other disorders of phosphorus metabolism; R68.0 Hypothermia, not associated with low environmental temperature; Z79.899 Other long term (current) drug therapy
CPT/HCPCS: 36415; 36430; 36600; 51702; 70450; 70551; 71045; 71260; 73630; 74177; 80048; 80053; 80069; 81003; 82140; 82330; 82607; 82728; 82746; 82803; 83540; 83550; 83605; 83690; 83735; 83880; 84100; 84132; 84145; 84443; 84478; 85025; 85027; 87040; 87426; 92526; 92610; 93005; 93010; 93306; 94760; 94762; 96365; 96366; 96375; 96376; 97162; 97166; 97530; 99285-25; A9270; C9803; G0378; G0480; J0456; J0610; J0696; J1885; J2060; J3010; J3411; J3475; J3480; J7030; J7040; J7042; J7050; J7060; P9046; Q9967